=== PATIENT | male | born 1930 | race Caucasian/White ===

== ENCOUNTER 2016-05-18 13:02 | Day surgery (SDC) | payer MEDICARE, OTHER ==
[~2016-05-18] VITALS: Ht 185.4 cm; Wt 81.7 kg
[~2016-05-18 13:02] MED LIST: CHOL10008 PO; CYAN250014 PO; FOLI1TAB18 PO; GLUC100016 PO; LISI-567 PO; METH10TA PO; MULT-666 PO; Sodium Chloride LOK Flush 10 mL Syringe IVFLUSH SCH; fentaNYL-PF 50 mCg/mL 2 mL Inj IVPUSH PRN
[2016-05-18 13:37] VITALS: BP 138/82; PULSE 71; RESP 16; O2SAT 100
[2016-05-18] MEDS ORDERED: RANI150C4 PO (13:42)
[2016-05-18 15:38] VITALS: BP 119/64; PULSE 63; RESP 16; O2SAT 99
[2016-05-18 15:48] VITALS: BP 147/74; PULSE 60; RESP 16; O2SAT 100
--- NOTE | 2016-05-18 17:31 | ENDO ---
[address] [address] ENDOSCOPY PROCEDURE PATIENT: TOSHIA VILLEGAS : 1930 MR#: [id number] ADMIT: 05/18/2016 JOB ID: [id number] DATE: 05/18/2016 PRIMARY CARE PHYSICIAN: Keeley Cowan MD PROCEDURE: Esophagogastroduodenoscopy with esophageal biopsies. SURGEON: Anthony Corona MD EQUIPMENT: Upper endoscope #13. SEDATION: Versed 5 mg and fentanyl 100 mcg. INDICATIONS: The patient is an 86-year-old man who recently underwent upper GI study to evaluate for gastroesophageal reflux symptoms. There is noted to be mucosal irregularity seen suggestive of either reflux disease or possibly neoplasia. He was therefore referred to ma for upper endoscopy. PROCEDURAL TECHNIQUE: The patient was taken to the endoscopy suite and sedation achieved using the above-stated medications with the addition of oxygen administered via nasal cannula. A bite block was placed in the mouth. After adequate sedation was achieved, the endoscope was introduced through the mouth and advanced under direct visualization through the pharynx into the esophagus and down to the stomach and 2nd portion of duodenum. He was noted to have linear ulcerations in the esophagus extending approximately 7 cm from the GE junction proximal. He had a small sliding hernia. The GE junction was at 37 cm and the diaphragm at 43 cm. There is also some mild duodenitis. The ulcerations of the GE junction had a white eschar suggestive of a possible Kate infection. Biopsies were taken as well as brushings for cultures. The scope was then withdrawn. ENDOSCOPIC FINDINGS: 1. LA grade B esophagitis with possible candidiasis. 2. Mild duodenitis. RECOMMENDATIONS: A proton pump inhibitor prescription has been provided with the patient. He has been advised to start taking this. I will call him with the results of the pathology.
--- NOTE | 2016-05-23 12:04 | PATH ---
SURGICAL PATHOLOGY Attending Physician:Anthony Corona MD CASE STATUS: Signed Out PATIENT NAME: TOSHIA VILLEGAS PID: [id number] : 1930 DATE COLLECTED:05/18/2016 00:00 SPECIMEN: Esophagus, Biopsy CLINICAL HISTORY: 1). GASTRO-ESOPHAGEAL JUNCTION BIOPSY FINAL DIAGNOSIS: 1.GASTROESOPHAGEAL JUNCTION BIOPSY: SQUAMOUS MUCOSA AND SUBMUCOSA WITH SEVERE ACUTE AND CHRONIC INFLAMMATION, REACTIVE EPITHELIAL CHANGES, AND PROMINENT ULCERATION WITH GRANULATION TISSUE. IMMUNOHISTCHEMISTRY FOR CYTOMEGALOVIRUS NEGATIVE. PASD STAIN FOR FUNGI NEGATIVE NEGATIVE FOR VIRAL INCLUSIONS NO GASTRIC-TYPE EPITHELIUM IDENTIFIED. Negative for dysplasia and malignancy. Eosinophils are not identified. ICD10 CODE K20.9 GROSS DESCRIPTION: The specimen is received in one formalin filled container labeled with the patient's name, sublabeled "GEJ" and consists of 4 portions of tissue which aggregate to 0.3 x 0.3 x 0.3 CM. The specimen is entirely submitted in one cassette. 05/19/2016 [facility] MICRO DESCRIPTION: See diagnosis. ICD-9 CODES: CPT CODES: 1: 84859, 77853, 81210 Electronically Signed Out Orville Clinton MD [facility] Pathology [facility] [address], [place] [address] Technical component performed at [facility], [address] [place] [address] [address], [place], [address]
== END 2016-05-18 23:59 | disposition home or self-care (01) ==
LOC: END 13:02
PROVIDERS: ATTEND General Practice
DX: K20.9 Esophagitis, unspecified (principal); K44.9 Diaphragmatic hernia without obstruction or gangrene; K29.80 Duodenitis without bleeding; I10 Essential (primary) hypertension; M06.9 Rheumatoid arthritis, unspecified
CPT/HCPCS: 43239; 87220; G0500; J2250; J3010; J7030

== ENCOUNTER 2016-08-15 13:14 | Observation (INO) | payer MEDICARE, OTHER ==
[~2016-08-15] VITALS: Ht 185.4 cm; Wt 79.5 kg
[~2016-08-15 13:14] MED LIST changes: +RANI150C4 PO; -Sodium Chloride LOK Flush 10 mL Syringe IVFLUSH SCH; +TdaP Vaccine 0.5 mL Inj IM ONE; -fentaNYL-PF 50 mCg/mL 2 mL Inj IVPUSH PRN
--- NOTE | 2016-08-15 13:14 | ED.REPORT ---
HPI-Head Prob / Injury Date of Service August 15, 2016 ED Provider: Jg Bain MD 86 y/o male with hx of HTN and arthritis presents to the ED via EMS due to head injury from a fall before arriving at ED. As per EMS, the pt's saw the pt crawling into the house on all fours, covered in blood. She didn't know how long he had been outside. The pt reports he was using the washer meat but does not recall what caused the fall or anything prior to it. Associated sx include mild pain in the head radiating to his right shoulder, RUQ pain, right elbow pain, right leg and right hip pain and right knee soreness. The pt reports difficulty raising his right leg because of right hip pain. He denies right knee pain on movement, extremity numbness or weakness and SOB. He denies using any anticoagulants. Nursing Notes Stated Complaint: GROUND LEVEL FALL/HEAD TRAUMA Nursing Notes Reviewed: Yes ([employer], Daojia not reconciled) Allergies: Coded Allergies: Penicillins (Verified Allergy, Unknown, 05/18/16) Scheduled Cholecalciferol (Vitamin D3) (Vitamin D3) 1,000 Unit Tab.chew 1,000 UNIT PO DAILY Cyanocobalamin (Vitamin B-12) (Vitamin B12) 2,500 Mcg Tab.chew 2,500 MCG PO DAILY Folic Acid (Folic Acid) 1 Mg Tablet 1 MG PO DAILY Glucosamine Sulfate 2Kcl (Glucosamine) 1,000 Mg Tablet 1,000 MG PO DAILY Lisinopril (Lisinopril) 20 Mg Tablet 20 MG PO DAILY Methotrexate Sodium (Trexall) 10 Mg Tablet 20 MG PO once weekly Multivitamin (Once Daily) 1 Each Tablet 1 EACH PO DAILY Ranitidine (Ranitidine) 150 Mg Capsule 150 MG PO BID General Time Seen by Provider: 13:12 Chief Complaint Blunt head trauma Hx Obtained From: Patient, EMS Arrived By: Ambulance Onset Occurred: Just prior to arrival Symptom Duration: Since onset Progression Since Onset: Constant Caused by: Fall from Location: : Occipital region R: Parietal region R: Temporal region R Quality: Painful Severity: Current: Mild Severity: Maximum: Mild Recent Healthcare: No recent doctor visit Similar Sx Previous: No Risk-Head Prob / Injury )( IC Bleed Risk Strat RF Statements: No risk factors Past Medical History Past Medical History Notes: Medication list from next 10 includes: Doxycycline 20 mg 2 times a day Folic acid 1 mg daily Glucosamine Lisinopril 10 mg daily Methotrexate 2.5 mg daily Vitamin B12 Vitamin D3 Zyrtec 10 mg daily Past Medical History Rheumatoid arthritis, on Methotrexate History of acid reflux Hypertension History of macrocytic anemia History of incomplete emptying of bladder History of a tubular adenoma of the colon History of BPH Reports: Hypertension Past Surgical History TURP Family History Reviewed, not relevant Smoking History Former Smoker Social History Alcohol Use: 1-3 per day Drug Use: Denies drug use Occupation [employer] Status Independent Review of Systems GI: Reports: Abdominal pain Musculoskeletal: Reports: Extremity pain (Right leg), Joint pain (Right shoulder, right elbow and right hip) Neurologic: Reports: Headache, Denies: Numbness, Weakness Complete sys rev & neg: except as marked. Physical Exam Initial Vital Signs See trauma flow sheet Initial VS: Reviewed (See trauma flow sheet) General/Constitutional: Awake, Alert, Cooperative Head / Eyes: Atraumatic, Normocephalic, PERRL, EOMI ENT: Atraumatic, Airway patent Neck: Atraumatic, Supple, Full range of motion Neurologic: Oriented X3, Speech NL, No motor deficits, No sensory deficits Extended fast is negative. Cardiovascular: Heart rate NL, Regular rhythm, Heart sounds NL, No gallop, No murmurs Pitting edema on lower extremities (Pt reports this is typical). Good dorsal pedal pulse Upper Extremity / MS: Full range of motion, Neurologic intact, Vascular intact Right elbow skin tear Bruise on right shoulder and elbow. Skin tear on the left hand (old) Lower Extremity / Pelvis / MS: Full range of motion, No swelling, Neurologic intact, Vascular intact Bruise on left knee Bruise and abrasion on right knee. Skin: Warm, Dry Bruising and abrasion on right side of the face Interpretation & Diagnostics Procedure: CT CHEST, ABDOMEN AND PELVIS WITH CONTRAST Impression: 1. No posttraumatic injury in the chest, abdomen or pelvis. 2. Right apical 7mm ulnar nodule. The solid component of this nodule is too small for evaluation with PET/CT. Recommend followup chest CT in 3 motnhs. 3. Right adrenal nodule. Recommend a multiphasic abdominal CT or MRI 4. 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 This finding will aslo be further evaluated with CT or MRI. Dictated by: Andrew Samuel M.D. on 08/15/2016 at 14:36 Approved by: Andrew Samuel M.D. on 08/15/2016 at 1500 Lab Results Interpretation Result Diagram: 08/15/16 1653 Test 08/15/16 00:00 08/15/16 13:29 08/15/16 16:48 08/15/16 16:53 Neutrophils (%) (Auto) 81.2% (40-74) Lymphocytes (%) (Auto) 14.3% (14-46) Monocytes (%) (Auto) 3.6% (4-12) Eosinophils (%) (Auto) 0.5% (0-5) Basophils (%) (Auto) 0.1% (0-3) Total Creatine Kinase 77U/L (21-232) Troponin T < 0.010ug/L (0.0-0.011) Alcohols < 10mg/dL (0-10) Urine Color Yellow (YELLOW) Urine Appearance Clear (CLEAR,HAZY) Urine pH 6.5 (5.0-8.0) Urine Specific [place] 1.010 (1.003-1.035) Urine Protein Negativemg/dL (NEG,TRACE) Urine Glucose (UA) 100mg/dL (NEGATIVE) Urine Ketones Tracemg/dL (NEGATIVE) Urine Occult Blood Small (NEGATIVE) Urine Nitrite Negative (NEGATIVE) Urine Bilirubin Negative (NEGATIVE) Urine Urobilinogen Normalmg/dL (NORMAL) Urine Leukocyte Esterase Negative (NEGATIVE) Urine RBC 0-2/hpf (0-2) Urine WBC 0-5/hpf (0-5) Urine Epithelial Cells None/hpf (NONE-MOD) Urine Crystals None seen (NONE SEEN) Urine Bacteria None/hpf (NONE-FEW) Urine Hyaline Casts None/lpf (NONE) Urine Granular Casts None seen (NONE SEEN) Urine Waxy Casts None seen (NONE SEEN) Urine Red Blood Cell Casts None seen (NONE SEEN) Urine White Blood Cell Casts None seen (NONE SEEN) Urine Mucus None seen (None Seen) Urine Trichomonas None seen (NONE SEEN) Urine Yeast None (NONE SEEN) Urinalysis Comment None Urine Culture Reflexed Not indicated White Blood Count 14.5th/mm3 (3.8-10.1) Red Blood Count 3.32mil/mm3 (4.40-5.80) Hemoglobin 11.7g/dL (13.8-17.2) Hematocrit 34.9% (41.0-50.0) Mean Corpuscular Volume 105.1fL (81-100) Mean Corpuscular Hemoglobin 35.2pg (27.0-35.0) Mean Corpuscular Hemoglobin Concent 33.5% (32.0-37.0) Red Cell Distribution Width 13.0% (12.3-15.4) Platelet Count 254bil/L (150-400) Lab Results Interpretation: CBC mild anemia, however values are not markedly changed from 2014 CMP normal Troponin negative CK negative for findings a rhabdomyolysis Repeat hematocrit is higher than the original. No evidence of ongoing hemorrhage ECG Interpretation ECG Interpretation: Normal sinus rhythm at a rate of 78, right bundle branch block, left anterior fascicular block, probable LVH, unchanged compared to EKG dated 01/31/2014 Time: 13:19 Interpreted by: ED physician X-Ray Chest Interpretation Chest Xray Interpretation: IMPRESSION: 1. No acute cardiopulmonary process is suspected. 2. The right costophrenic angle is not included. 2. Cardiomegaly. Dictated by: Sherman Vinson M.D. on 08/15/2016 at 13:09 Approved by: Sherman Vinson M.D. on 08/15/2016 at 13:13 View: Portable, 1 view Interpretation / Wet Read by: Interpret - Radiologist X-Ray Interpretation Xray Interpretation: IMPRESSION: No acute fracture. No osseous lesion. If symptoms and/or clinical suspicion for pathology persist, further assessment with repeat, or advanced imaging (e.g., CT, MRI, or bone scan) may be helpful for further assessment. Dictated by: Miguel Angel Multani M.D. on 08/15/2016 at 14:37 Approved by: Miguel Angel Multani M.D. on 08/15/2016 at 14:38 X-Ray Ordered: Wrist right Interpretation / Wet Read by: Interpret - Radiologist Xray Interpretation: IMPRESSION: Advanced degenerative changes of the right shoulder without acute fracture. Dictated by: Sherman Vinson M.D. on 08/15/2016 at 13:15 Approved by: Sherman Vinson M.D. on 08/15/2016 at 13:15 X-Ray Ordered: Shoulder right Interpretation / Wet Read by: Interpret - Radiologist Xray Interpretation: IMPRESSION: 1. No displaced knee fracture. 2. Knee joint effusion probably is degenerative. 3. Moderate degenerative changes of the knee. Dictated by: Sherman Vinson M.D. on 08/15/2016 at 13:06 Approved by: Sherman Vinson M.D. on 08/15/2016 at 13:07 X-Ray Ordered: Knee right Interpretation / Wet Read by: Interpret - Radiologist Xray Interpretation: IMPRESSION: No acute fracture of the right femur. Dictated by: Sherman Vinson M.D. on 08/15/2016 at 13:05 Approved by: Sherman Vinson M.D. on 08/15/2016 at 13:06 X-Ray Ordered: Femur right Interpretation / Wet Read by: Interpret - Radiologist Xray Interpretation: IMPRESSION: Possible minimally displaced radial head/neck fracture. Dictated by: Miguel Angel Multani M.D. on 08/15/2016 at 13:59 Approved by: Miguel Angel Multani M.D. on 08/15/2016 at 14:03 X-Ray Ordered: Elbow right Interpretation / Wet Read by: Interpret - Radiologist CT Head Interpretation IMPRESSION: 1. No acute intracranial hemorrhage. 2. Proximal volume loss and chronic small vessel ischemic changes. 3. Mild ethmoid sinus disease and mastoid effusion on the left. Dictated by: Sherman Vinson M.D. on 08/15/2016 at 13:18 Approved by: Sherman Vinson M.D. on 08/15/2016 at 13:27 Study: Head CT no contrast Interpretation / Wet Read by: Interpret - Radiologist CT C-Spine Interpretation IMPRESSIONl 1. No acute pathology in the cervical spine. 2. Age-appropriate cervical spine degenerative change. 3. Right apical pulmonary nodule. Please refer to [facility]'s dedicated chest CT for further evaluation. Study type: CT no contrast Interpretation / Wet Read by: Interpret - Radiologist Re-Eval/Medical Decision Med Decision/Clinical Course This is an 86-year-old male who presented as a standby trauma with an unknown mechanism. The history is initially from the , the patient remembers going outside to do some pressure washing, but then called in on all fours into the house covered in blood, with clear, to the head, and can entirely amnestic to events-so 911 was called. It is unknown how the patient fell, while the patient fell, where the patient fell, if it is a simple ground-level fall with there was some sort of actual distance involved. We confused with a GCS of 14 for EMS, and is amnestic to events just prior to, during and after being found. However he remembers his birthday, date, yesterday's events and is otherwise acting appropriately. He complains of soreness including the head, right shoulder, and right hip/knee area, as well as right upper quadrant discomfort. His confirms he is not on any anticoagulants. he is awake, alert and answering questions appropriately, he can answer his birthday, previous events, but amnestic to events relating to today. He has no focal deficits. He has skin tears and abrasions to the right side of his head and face, but no lacerations requiring repair. Pupils are normal, extraocular motions are intact, there are no findings of oral or dental trauma evident. He does complain of some neck soreness of the c-collar remained in place until weird by CT imaging. His lungs were clear, heart tones are normal with no murmurs rubs or gallops, he has some mild right upper quadrant tenderness, but a bedside extended fast ultrasound was negative for appreciable findings. Bladder is mildly distended. He has bruising along the right shoulder, right elbow, right wrist-however he has intact range of motion preserved without overt signs of clinical fracture dislocation. He has intact hip and pelvic stability. He complains of some mild soreness of the right knee but I do not appreciate any effusion-there is evidence of contusion and mild abrasion to both knees bilaterally. He is neurovascularly intact. Patient had no hemodynamic instability. CT imaging of the brain, cervical spine negative. CT of the chest abdomen pelvis were also negative for acute traumatic pathology. Radiographs of the shoulder, right elbow, right wrist, right femur, right knee were generally negative, with a question of a radial head fracture of the right elbow raised-but on reevaluation the patient has no elbow pain, has full extension 280, full flexion, normal pronation and supination-with no clinical finds a fracture. Therefore splinting is not indicated at this time. EKG was obtained without acute dysrhythmia or ischemic event. Initial troponin is negative. There is no evidence of rhabdomyolysis on by CK values. At this point we do not know if there was an antecedent event. The patient still feels generally poor and not entirely normal. Given his age I discussed the option of observation hospitalization in he wrecked requests this, so the plan is observation to telemetry for continued management. Given a surgical injury has been identified the plan is admission to the medicine service for continued monitoring. LET is being applied to the abrasions, to alloud better cleaning and localized wound care. A Tdap update was provided At this time is unknown what precipitated the fall, if there was a medical antecedent-and telemetry monitoring for the possibility of a dysrhythmic event contributing and syncope is recommended. Patient does have mild anemia, but this appears to chronic per the records. The patient has a very sizable bladder on CT scan, he denies any clinical symptoms of difficulty urinating, or trying to get the patient to urinate so we can attempt a postvoid residual as catheterization might actually be warranted in this setting Indeed, while the patient has no urinary symptoms-, on imaging his bladder appears quite distended. So we had him urinate and obtain a bladder scan for postvoid residual which was greater than a liter, so Gates was placed. Source of Hx: Old records, EMS Re-Evaluation/Progress : Time of Eval: 15:50 Re-Evaluation/Progress Note: Pt rechecked. Discussed lab and imaging results. Pt reports he feels slightly better. He reports no pain in his right elbow. He has normal supination, full flexion adn full extension. Splinting is not required. Discussed the plan to admit the pt. He understands and agrees with the plan for admission. All questions addressed. Consultation #1: Call Returned at: 16:20 Note: Awaiting callback from admit hospitalist to identify which hospitalist will be admitting this patinet. 2nd page sent. Consultation #2: Referral / Consult Name: Sarah Ortega MD Consulted With: Hospitalist Call Returned at: 18:06 Interior Paneler: Will see patient, Agrees with eval, Agrees with plan, Accepts admit Differential Diagnosis: Positive: Abrasion, Blunt head trauma, Closed head injury, Negative: Basilar skull fracture, Cerebral contusion, Cervical spine injury, Epidural hematoma, Eye injury, Facial bone fracture, Gun shot wound head, Intracranial hemorrhage, Penetrating head injury, Scalp laceration, Skull fracture, Subdural hematoma Counseled Regarding: Diagnosis, Lab results, Need for admission Discharge & Departure Departure Notes r/o syncope. Primary Impression: Concussion Encounter type: initial encounter Loss of consciousness presence/duration: with LOC of unspecified duration Qualified Code: S06.0X9A - Concussion with loss of consciousness of unspecified duration, initial encounter Additional Impressions: Blunt head trauma Encounter type: initial encounter Qualified Code: S09.8XXA - Other specified injuries of head, initial encounter Multiple contusions Multiple abrasions Urinary retention Disposition: ADMITTED TO HOSPITAL All VS Reviewed: Yes Referrals: Keeley Cowan MD (PCP) Scribe Attestation Portions of this note were transcribed by Nancy Quinteros. I, , personally performed the history, physical exam and medical decision-making;I reviewed and confirmed the accuracy of the information in the transcribed note. Signed by Devan Elizalde. 08/15/16 [id number] copies to: Keeley Cowan MD, Matthew F MD August 15, 2016 13:14 Nancy Quinteros August 15, 2016 14:37
[2016-08-15] MEDS ORDERED: Lidocaine-Epi-Tetracaine Solution 3 mL Syringe TOPICAL ONE (13:25)
[2016-08-15] MEDS ORDERED: TdaP Vaccine 0.5 mL Inj IM ONE (13:25)
[2016-08-15] MEDS ORDERED: Ondansetron 2 mg/mL 2 mL Inj IVPUSH ONE (13:25)
[2016-08-15 14:01] LABS: Creatine Kinase 77 U/L (21-232)
[2016-08-15 14:03] LABS: TROPONIN T < 0.010 ug/L (0.0-0.011)
--- NOTE | 2016-08-15 14:05 | DRSVH ---
PROCEDURE: X-RAY RIGHT ELBOW, TWO VIEWS ([id number]) INDICATIONS: trauma TECHNIQUE: 3 views of the elbow were acquired. COMPARISON: None. FINDINGS: Examination is limited by difficulties with patient positioning. Bones: Linear lucency traverses the radial head and neck.. No suspicious bony lesions. Soft tissues: No elbow joint effusion. No suspicious soft tissue calcifications. IMPRESSION: Possible minimally displaced radial head/neck fracture. Dictated by: Miguel Angel Multani M.D. on 08/15/2016 at 13:59 Approved by: Miguel Angel Multani M.D. on 08/15/2016 at 14:03
--- NOTE | 2016-08-15 14:08 | DRSVH ---
PROCEDURE: X-RAY RIGHT FEMUR, TWO VIEWS ([id number]) INDICATIONS: trauma TECHNIQUE: 2 views of the femur were acquired. COMPARISON: [facility], CR, XR KNEE 3VW RT, 08/15/2016, 13:19. FINDINGS: Bones: No fractures or dislocations. No suspicious bony lesions. Degenerative changes of the knee and hip are noted. Soft tissues: No suspicious soft tissue calcifications or masses. IMPRESSION: No acute fracture of the right femur. Dictated by: Sherman Vinson M.D. on 08/15/2016 at 13:05 Approved by: Sherman Vinson M.D. on 08/15/2016 at 13:06
--- NOTE | 2016-08-15 14:09 | DRSVH ---
PROCEDURE: X-RAY RIGHT KNEE, THREE VIEWS ([id number]) INDICATIONS: trauma TECHNIQUE: 2 views of the knee were acquired. COMPARISON: None. FINDINGS: Bones: No displaced fracture or dislocation is identified. The bone mineralization is decreased. Th ere are moderate degenerative changes of the knee. Soft tissues: There is a small to moderate-sized joint effusion. No suspicious soft tissue calcifica tions. Prepatellar soft tissue thickening is noted. IMPRESSION: 1. No displaced knee fracture. 2. Knee joint effusion probably is degenerative. 3. Moderate degenerative changes of the knee. Dictated by: Sherman Vinson M.D. on 08/15/2016 at 13:06 Approved by: Sherman Vinson M.D. on 08/15/2016 at 13:07
--- NOTE | 2016-08-15 14:15 | DRSVH ---
PROCEDURE: X-RAY CHEST ONE VIEW, PORTABLE ([id number]) INDICATIONS: trauma TECHNIQUE: One view of the chest was acquired. COMPARISON: [facility], , CHEST 1VW (PORTABLE), 01/31/2014, 22:13. FINDINGS: Surgical changes and devices: None. Lungs and pleura: The right costophrenic angle is not included on this exam. Recommend the lungs ivory ear to be well aerated without focal consolidation, effusion, or pneumothorax. Mediastinum: Mediastinal contours appear normal. Heart size is enlarged. Bones and chest wall: No suspicious bony lesions. Multilevel degenerative changes of the spine are noted. Overlying soft tissues appear unremarkable. IMPRESSION: 1. No acute cardiopulmonary process is suspected. 2. The right costophrenic angle is not included. 2. Cardiomegaly. Dictated by: Sherman Vinson M.D. on 08/15/2016 at 13:09 Approved by: Sherman Vinson M.D. on 08/15/2016 at 13:13
--- NOTE | 2016-08-15 14:17 | DRSVH ---
PROCEDURE: X-RAY RIGHT SHOULDER, MINIMUM TWO VIEWS ([id number]) INDICATIONS: trauma TECHNIQUE: 2 views of the shoulder were acquired. COMPARISON: [facility], , SHOULDER MIN 2VW (RT), 02/28/2012, 11:29. FINDINGS: Bones: No fractures or dislocations. No suspicious bony lesions. Visualized ribs appear intact. S evere degenerative changes of the glenohumeral and acromio clavicular joints are present. There pseu doarticulation of the superior margin of the humeral head with the undersurface of the acromion, sugg esting a chronic rotator cuff tear. Soft tissues: No suspicious soft tissue calcifications. IMPRESSION: Advanced degenerative changes of the right shoulder without acute fracture. Dictated by: Sherman Vinson M.D. on 08/15/2016 at 13:15 Approved by: Sherman Vinson M.D. on 08/15/2016 at 13:15
--- NOTE | 2016-08-15 14:28 | DRSVH ---
PROCEDURE: CT BRAIN WITHOUT CONTRAST ([id number]) INDICATIONS: trauma TECHNIQUE: Noncontrast 4.5 mm thick angled axial sections acquired from the foramen magnum to the vertex, with c oronal reformats. COMPARISON: None. FINDINGS: Image quality: Diagnostic. Brain: There is no acute intra-axial or extra-axial hemorrhage. No extra-axial fluid collection is i dentified. There is no midline shift or mass effect. The orbits are grossly unremarkable. No large areas of diffusely decreased attenuation are evident within the brain to suggest diffuse cer ebral edema. Small scattered areas of low attenuation within the periventricular white matter of the supratentorial brain is noted within the occipital lobes. The ventricles and cortical sulci are mildly prominent. Bones: Calvarium and visualized facial bones are grossly intact. Mild mucosal thickening is noted i nvolving ethmoid air cells. There is opacification of the left mastoid air cells. Otherwise, the alexei ged paranasal sinuses and mastoid air cells are clear. IMPRESSION: 1. No acute intracranial hemorrhage. 2. Proximal volume loss and chronic small vessel ischemic changes. 3. Mild ethmoid sinus disease and mastoid effusion on the left. Dictated by: Sherman Vinson M.D. on 08/15/2016 at 13:18 Approved by: Sherman Vinson M.D. on 08/15/2016 at 13:27
--- NOTE | 2016-08-15 14:39 | DRSVH ---
PROCEDURE: X-RAY RIGHT WRIST COMPLETE, MINIMUM THREE VIEWS ([id number]) INDICATIONS: trauma TECHNIQUE: 4 views of the wrist were acquired. COMPARISON: None. FINDINGS: Bones: No fractures or dislocations. No suspicious bony lesions. Scaphoid view: Negative Soft tissues: No suspicious soft tissue calcifications. IMPRESSION: No acute fracture. No osseous lesion. If symptoms and/or clinical suspicion for patholog y persist, further assessment with repeat, or advanced imaging (e.g., CT, MRI, or bone scan) may be h elpful for further assessment. Dictated by: Miguel Angel Multani M.D. on 08/15/2016 at 14:37 Approved by: Miguel Angel Multani M.D. on 08/15/2016 at 14:38
[2016-08-15] MEDS: fentaNYL-PF 50 mCg/mL 2 mL Inj IVPUSH PRN ×2 (15:02→16:08)
[2016-08-15 15:05] LABS: Mean Corpuscular Hemoglobin 35.5 pg (27.0-35.0); Mean Corpuscular Volume 104.6 fL (81-100)
[2016-08-15 15:06] LABS: BASOPHILS % (AUTO) 0.1 % (0-3); EOSINOPHILS % (AUTO) 0.5 % (0-5); MONOCYTES % (AUTO) 3.6 % (4-12); NEUTROPHILS % (AUTO) 81.2 % (40-74); Platelet Count 218 bil/L (150-400)
[2016-08-15] MEDS ORDERED: Lidocaine 2% 6mL Topical Jelly TOPICAL ONE (16:50)
[2016-08-15 16:58] LABS: Mean Corpuscular Hemoglobin 35.2 pg (27.0-35.0); Mean Corpuscular Volume 105.1 fL (81-100)
[2016-08-15 17:33] LABS: APPEARANCE,URINE CLEAR (CLEAR,HAZY); COLOR,URINE YELLOW (YELLOW); OCCULT BLOOD,URINE SMALL (NEGATIVE); PH,URINE 6.5 (5.0-8.0); UROBILINOGEN,URINE NORMAL (NORMAL)
[2016-08-15] MEDS ORDERED: Ondansetron 2 mg/mL 2 mL Inj IVPUSH PRN (18:35)
[2016-08-15] MEDS ORDERED: Polyethylene Glycol (PEG) 17 Gm Powder PO PRN (18:35)
[2016-08-15] MEDS ORDERED: Alum-Mag Hydrox-Simeth 30 mL Suspension PO PRN (18:35)
[2016-08-15] MEDS ORDERED: HYDROcodone-APAP 7.5-325 mg Tablet PO PRN (18:50)
--- NOTE | 2016-08-15 19:28 | HP ---
[address] [address] HISTORY AND PHYSICAL PATIENT: TOSHIA VILLEGAS : 1930 MR#: [id number] ADMIT: 08/15/2016 JOB ID: [id number] PRIMARY CARE PROVIDER: Dr. Keeley Cowan. Patient is admitted from the ED, observational status, Green Team. CHIEF COMPLAINT: Fall with trauma and amnesia history to event. HISTORY OF PRESENT ILLNESS: This is an 86-year-old male who felt fine today. Had breakfast with his , was doing well and they went out to the deck to do pressure washing. About 2 or 3 hours later, looked out and saw him trying to crawl up the stairs of the deck with a bloodied right side of his face and bruising to the right side of his body. She called an ambulance and he was brought to the ED. The patient has no recollection of the event. He remembers feeling okay in the morning. Knows he was out pressure washing. He thinks he must have probably fallen down the stairs because he says there is no other way to have gotten down the stairs and be on the grass, but he was trying to crawl up. We have no idea how long he was down. He has otherwise been feeling well recently. There have been no other falls. He denies any recent dizziness, vertigo, lightheadedness. He has not had any chest pain, edema, shortness of breath, cough, diarrhea or other complaints. COMPLETE REVIEW OF SYSTEMS: Obtained, all pertinent positives in HPI as above, rest of review of systems are negative. PAST MEDICAL HISTORY: 1. Hypertension. 2. Rheumatoid arthritis. 3. GERD. 4. Macrocytic anemia. 5. BPH with a prior TURP. 6. History of tubular adenoma. MEDICINES: 1. Lisinopril 5 daily. 2. Folic acid 1 mg daily. 3. Pantoprazole 40 daily. 4. Methotrexate 2.5 once a week. 5. Vitamin B12. 6. Vitamin D 3, this was verified with the patient. ALLERGIES: PENICILLIN. SOCIAL HISTORY: Lives with his . Does not smoke. Drinks alcohol occasionally. FAMILY HISTORY: Dad had a stroke at 57 but lived to an older age. Mother at age 100. PHYSICAL EXAMINATION: Vitals are stable. Skin is warm and dry. The patient has abrasions with some skin sloughing, right side of his face. He has some bruising with a superficial abrasion to the right shoulder. A small little abrasion on the elbow. He has right hip that has some bruising and a little bit of an abrasion to the right knee laterally. I do not see any other lesions or abrasions on the other side. Eyes are PERRLA. EOM intact. Mouth shows adequate hydration. No neck pain. Cardiac is regular. No rubs. He has a 3/6 systolic murmur. His lungs are coarse but otherwise clear. Abdomen is soft, nonacute, benign. Extremities showed no significant edema. Cranial nerves 2-12 are intact. There are no gross motor or sensory defects noted. DIAGNOSES: 1. Traumatic fall present on admission, resolved. Differential would include just a mechanical fall, however, syncope, arrhythmias, orthostatic problems could also account for this. At this point in time, patient will be admitted and monitored on telemetry. Will get a PT evaluation. Will get some orthostatics on him in the morning. Will order an EEG, and we will monitor him carefully overnight. 2. Concussion, present on admission, active. The patient has had an amnesic event, suspect an underlying concussion at this time. CT negative of brain. 3. Urinary retention. In the ED, the patient was noted to have over 1000 mL in his bladder. He voided and he still had 1000 so Gates was placed. He may need to go home with that but will consider trying to remove it tomorrow. 4. Rheumatoid arthritis. Will monitor, continue methotrexate. 5. Hypertension. Will monitor, continue lisinopril and check orthostatics. 6. Macrocytosis. Check B12, folate levels. DISPOSITION: Primary care provider is Dr. Cowan, patient lives with his .
--- NOTE | 2016-08-15 20:23 | NUR ---
Case Management: Pt just arrived to room, pt still on [place], staff providing care. Will have to provide MOSES tomorrow. Beatriz Sharma RN
[2016-08-15 20:27] VITALS: BP 158/71; PULSE 82; RESP 20; O2SAT 100
[2016-08-15] MEDS ORDERED: LISI10TA PO (21:03)
[2016-08-15] MEDS ORDERED: CYAN1TAB42 PO (21:03)
[2016-08-15] MEDS ORDERED: PANT20TA2 PO (21:03)
[2016-08-15] MEDS ORDERED: METH2.5T PO (21:03)
[2016-08-15] MEDS ORDERED: PANT40TA3 PO (21:16)
[2016-08-15 21:29] VITALS: PULSE 87
[2016-08-15] MEDS: HYDROmorphone 1 mg/mL Inj IVPUSH PRN (22:32)
--- NOTE | 2016-08-15 23:31 | NUR ---
Admit: Pt arrived around 2044 to room 3020 from ED via stretcher, slide board used for transfer; no family at bedside. Pt AOx3, SL, thrasher in place. Tele placed, RA. Pt c/o generalized pain 5-6/10; PO medication administered, not effective. New order for IV pain medication, administered, effective. Home medications entered by admit RN. Bed alarm on for safety, pt pleasant and cooperative with care.
[2016-08-16] VITALS (8 sets, daily range): BP systolic 129–156; BP diastolic 67–74; PULSE 69–84; RESP 16–18; O2SAT 94–100
[2016-08-16] MEDS: HYDROmorphone 1 mg/mL Inj IVPUSH PRN ×3 (04:18→16:31)
--- NOTE | 2016-08-16 05:42 | NUR ---
Pain: Pt c/o pain x2 during NOC shift, medication administered; effective. Pt slept most of the night, pleasant and cooperative with care.
[2016-08-16] MEDS: Pantoprazole 20 mg ER24 Tablet PO SCH (08:30)
--- NOTE | 2016-08-16 11:36 | NUR ---
Evaluation completed. Please go to "Notes" then click on "Assessments and Notes" (bottom left corner of screen). Then select appropriate discipline tab on top of screen.
--- NOTE | 2016-08-16 12:37 | NUR ---
Case Management- MOSES explained and signed by patient. copy given to patient. Original placed in chart. Carolyne Barney RN/ UR
--- NOTE | 2016-08-16 14:03 | NUR ---
Social Work-initial assessment/readiness for discharge: Data:See initial assessment. Pt is a 86 y/o male who was admitted on 08/15/16 for concussion per H&P. Pt's insurance is [employer] and PCP is Keeley Cowan MD. EMR reviewed. pt's readmission score is 2. SW met with pt to discuss discharge planning, SW role explained. Pt is alert and oriented x3. Pt resides at home with his in [place] where he remains independent with ADLs. Pt does not use any DME and drives. Pt has no HH or SNF history. Pt has no moth exterminator care or VA benefits. SW discussed DPOA/ advanced directive, pt confirms he has completed this, SW encouraged pt to bring a copy into the hospital. PT saw pt and recommended home no needs. SW discussed HH services, but pt declining this at this time. pt's to provide transport home at discharge. SW provided phone number and plan on white board in room. No anticipated discharge needs. SW will continue to follow. Assessment:pt who is independent at baseline. Plan:Pt to discharge home when medically stable via POV. PT has cleared pt for home no needs. Pt declining HH services. No anticipated discharge needs. SW will continue to follow. LATIA Lopez Addendum: 08/16/16 at 1411 by SANJANA FERMIN Amended: Links added.
--- NOTE | 2016-08-16 14:07 | PCM.PNMED ---
Subjective Date of Service August 16, 2016 Subjective No new problems overnight. Considerable pain and stiffness, r shoulder back hip. Really no pain in the r elbow. Exam Vital Signs Vital Sign - Last Date Time Temp Pulse Resp B/P Pulse Ox O2 Delivery O2 Flow Rate FiO2 08/16/16 11:01 73 08/16/16 10:43 36.8 18 146/74 94 Room Air Intake and Output 08/15/16 08/15/16 08/16/16 Cumulative From/Thru 15:00 23:00 07:00 08/15/16 20:25 - 08/16/16 04:30 Intake Total 100 ml 100 ml Output Total 1950 ml 1950 ml Balance -1850 ml -1850 ml Intake Oral 100 ml 100 ml Output Urine Total 1950 ml 1950 ml Exam Eyes; javier, eom intact HENT; well hydrated, no lesions CV; regular, 3/6 systolic murmur Resp; clear GI; soft non tender Skin and abrasions, same as yesterday, the extensive abrasion and scraping right side of face is drying up and forming scabs right elbow, no pain with passive or active motion Lab and Diagnostics Result Diagram: 08/15/16 1653 08/15/16 1329 Assessment & Plan DIAGNOSES: 1. Traumatic fall, present on admission, resolved. -ortostatics normal, tele unrevieling, lab OK, cardiac markers negative, PT eval with standby assist -pending eeg results, echo results, B12, folate -Differential would include just a mechanical fall, however, syncope, arrhythmias, orthostatic problems could also account for this. 2. Concussion, present on admission, active. -The patient has had an amnesic fall event, suspect an underlying concussion at this time. -CT negative of brain. -supportive care 3. Possible hairline fracture right radial head/neck, poa, active -asymptomatic at this time, no active treatment needed 3. Urinary retention, poa, active -In the ED, the patient was noted to have over 1000 mL in his bladder. He voided and he still had 1000 so Thrasher was placed. -will d/c thrasher, hopefully patient will be able to void 4. Rheumatoid arthritis, poa, stable -Will monitor, continue methotrexate. 5. Hypertension, poa, stable -Will monitor, continue lisinopril and check orthostatics. 6. Macrocytosis, poa, stable Check B12, folate levels. 7. Abnormalities noted on CT needing out patient follow up, whole body 08/15/16; Pleas see CT report for recommended follow up -right apical 7 mm ulnar nodule -right adrenal nodule -severe left renal atrophy with likely hemorrhagic cyst. 8. Disposition; Patient live with who is pretty frail. I think patient would benefit being here overnight to recover a bit more before going home. PT can re-evaluate in am, and hopefully we will have the results of pending tests. It would be worth while to monitor one more night on tele looking for a cause of this fall. Sarah Ortega MD August 16, 2016 14:07
--- NOTE | 2016-08-16 19:43 | NUR ---
PAIN Pt reports increase pain today from yesterday in the R chest of 3-5/10. Given PRN 0.5 Dilaudid IV push. Pt reports pain is decreased to 2/10 and able to rest comfortably in bed. Pt on 1P assist for safety and bed alarm when in bed.
--- NOTE | 2016-08-16 21:01 | PROCED ---
[address] [address] EEG PATIENT: TOSHIA VILLEGAS : 1930 MR#: [id number] ADMIT: 08/15/2016 JOB ID: [id number] DATE OF SERVICE: 08/16/2016 HISTORY: The patient is an 86-year-old man with an episode of loss of consciousness. TECHNICAL DESCRIPTION: This digital EEG was recorded using 25 scalp and ear and two EKG electrodes. It was reviewed in bipolar and referential montages following reformatting in the 10-20 International Electrode Placement System. During the recording, the patient was noted to be awake, drowsy, and asleep. The background was composed of a 9 hertz 10 to 20 microvolt, symmetrical and reactive posterior dominant rhythm that attenuated with eye opening. The rest of the background was composed of low voltage faster frequencies. There were no focal, lateralized, or epileptiform discharges noted. There were no seizures seen. Hyperventilation was not performed. Photic stimulation from 1-30 hertz did not elicit any photic driving response. Sleep was characterized by the attenuation of the alpha rhythm and the appearance of symmetrical vertex waves, heralding stage 1 of sleep. This is followed by the development of symmetrical sleep spindles, heralding stage 2 of sleep. The EKG rhythm strip revealed a heart rate of 60 to 80 beats per minute with no apparent arrhythmias. IMPRESSION: This EEG performed in the awake, drowsy, and asleep states is within normal limits. Clinical correlation is advised. QUINND
[2016-08-17] VITALS (7 sets, daily range): BP systolic 101–138; BP diastolic 64–76; PULSE 70–99; RESP 16–18; O2SAT 96–98
[2016-08-17 08:14] LABS: Vitamin B12 >1999 pg/mL (211-946)
[2016-08-17] MEDS: Pantoprazole 20 mg ER24 Tablet PO SCH (09:00)
--- NOTE | 2016-08-17 11:59 | DRSVH ---
PROCEDURE: CT CERVICAL SPINE WITHOUT CONTRAST ([id number]) INDICATIONS: trauma TECHNIQUE: Noncontrast 3 mm thick sections acquired from the skull base to the T4 level. Sagittal and coronal r eformats were then constructed. For radiation dose reduction, the following was used: automated exp osure control, adjustment of mA and/or kV according to patient size. COMPARISON: None. FINDINGS: Image quality: Excellent. Bones: Partial left mastoid air cell effusion with no CT evidence of associated displaced fracture. N o acute fractures or dislocations. Normal cervical vertebral body alignment. Intervertebral disc heig ht loss and osteophyte formation consistent with age-appropriate degenerative changes greatest at C3- 4 and C5-7. Old well-corticated avulsion fracture from the posterior C7 spinous process. Soft tissues: Prevertebral soft tissues are normal in thickness. No paravertebral hematomas. No ap ical pneumothoraces. 4 mm right apical pulmonary nodule a (se 11 im 73]. IMPRESSION: 1. No acute pathology in the cervical spine. 2. Age-appropriate cervical spine degenerative change. 3. Right apical pulmonary nodule. Please refer to today's dedicated chest CT for further evaluation. Dictated by: Andrew Samuel M.D. on 08/15/2016 at 14:23 Approved by: Andrew Samuel M.D. on 08/15/2016 at 14:28
--- NOTE | 2016-08-17 12:00 | DRSVH ---
PROCEDURE: CT CHEST, ABDOMEN AND PELVIS WITH CONTRAST ([id number]) INDICATIONS: trauma TECHNIQUE: After the administration of intravenous contrast, 5 mm thick sections acquired from the lung apices t o the symphysis. 5 mm thick coronal and sagittal reformats were acquired. Additional 7 mm thick cor onal maximum intensity projection (MIP) reformats acquired through the lungs. Optional 10-minute del ayed imaging may be performed from the kidneys to the bladder. For radiation dose reduction, the fol lowing was used: automated exposure control, adjustment of mA and/or kV according to patient size. COMPARISON: None. FINDINGS: Image quality: Excellent. CHEST: Lungs: There is a 7 mm right apical pulmonary nodule (se 13 im 13). Otherwise the lungs are clear. N o pulmonary contusions or lacerations. No acute airspace opacities. No pneumothorax or hemothorax. Central and peripheral airways appear patent and normal in caliber. Mediastinum: No mediastinal hematomas. Heart size is normal. No pericardial effusion. Thoracic ao rta and pulmonary arteries demonstrate normal size and enhancement. No mediastinal or hilar adenopat hy. Esophagus is normal in caliber. Small hiatal hernia. Chest wall: Subcutaneous emphysema in the left shoulder.. ABDOMEN: Solid organs: The liver, gallbladder, pancreas, spleen, left adrenal gland are normal. There is a 3.8 x 2.6 cm right adrenal gland nodule. Marked left renal atrophy with a 1.9 cm inferior left renal nod ule. Several right renal cysts. 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 The bladder is distended with small aicha dder diverticula. Peritoneum and bowel: No free fluid or air. Unenhanced bowel loops demonstrate normal wall thicknes s and caliber. Normal appendix. Nodes and vessels: No retroperitoneal or mesenteric adenopathy. Aorta and inferior vena cava are no rmal in size and enhancement. Miscellaneous: No ventral hernias. PELVIS: Genitourinary: Bladder wall thickness is normal. Miscellaneous: No inguinal hernias or adenopathy. Bones: Pelvic ring and hip joints appear intact. No vertebral compression fractures. IMPRESSION: 1. No posttraumatic injury in the chest, abdomen or pelvis. 2. Right apical 7 mm ulnar nodule. The solid component of this nodule is too small for evaluation wit h PET/CT. Recommend followup chest CT in 3 months. 3. Right adrenal nodule. Recommend a multiphasic abdominal CT or MRI. 4. 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 This finding will also be further evaluate d with CT or MRI. Dictated by: Andrew Samuel M.D. on 08/15/2016 at 14:36 Approved by: Andrew Samuel M.D. on 08/15/2016 at 15:00
--- NOTE | 2016-08-17 12:39 | DRSVH ---
[facility] [address] [place] [address] Echocardiogram Report Name: TOSHIA VILLEGAS DStudy Date: 08/17/2016 Height: 73 in Hospital Exam Location: [facility] Weight: 175 lb Gender: Male BSA: 2.0 m2 : 1930 Age: 86 yrs BP: 101/65 mmHg Reason For Study: Murmur Ordering Physician: HOSPITALIST [facility] Performed By: Emily Quiñonez Referring Physician: Dr Keeley Cowan Interpretation Summary There is mild concentric left ventricular hypertrophy. The ejection fraction is estimated to be 60-65%. There is mild aortic valve sclerosis. There is no hemodynamically significant valvular aortic stenosis. There is trace tricuspid regurgitation. Procedure: A two-dimensional transthoracic echocardiogram with color flow and Doppler was performed. There is no prior echocardiogram noted for this patient. The study quality was technically adequate. The patient was in normal sinus rhythm during the exam. Left Ventricle: There is mild concentric left ventricular hypertrophy. The left ventricle is normal in size. The ejection fraction is estimated to be 60 -65%. Left ventricular wall motion is normal. The E/A ratio is reversed, suggesting impaired early relaxation of the left ventricle or a reduced preload state. Right Ventricle: The right ventricle is normal in size and function. The right ventricular systolic function is normal. Atria: The left atrial size is normal. Right atrial size is normal. The interatrial septum is intact with no evidence for an atrial septal defect. There is no Doppler evidence for an interatrial shunt. Mitral Valve: The mitral valve is normal in structure and function. There is no mitral regurgitation noted. Aortic Valve: The aortic valve is trileaflet. Leaflet mobility is mildly reduced. Minimal to no movement of the right aortic cusp. There is mild aortic valve sclerosis. There is no hemodynamically significant valvular aortic stenosis. No aortic regurgitation is present. Tricuspid Valve: The tricuspid valve is normal in structure and function. There is trace tricuspid regurgitation. Pulmonic Valve: The pulmonic valve is normal in structure and function. There is trace pulmonic regurgitation. Great Vessels: The aortic root is normal size. The dimensions of the ascending aorta are normal. The ascending aorta is normal in size. The pulmonary artery is normal size. The IVC is of normal diameter and collapses greater than 50% with a sniff. This suggests a low right atrial pressure of 3 mm Hg. Pericardium/ Pleura There is no pericardial effusion. There is no pleural effusion. MMode/2D Measurements & Calculations LVIDd: 4.0 cm RA long axis LVOT diam LVIDs: 2.3 cm LA A2 area: 15.4 cm FS: 42.4 % LA A4 area: 14.0 cm RA area AoV Opening EPSS: 0.68 cm LA length (vol): 4.4 cm IVSd: 1.2 cm LA vol: 41.5 ml : 18.0 cm Ao root diam LVPWd: 1.3 cm LA vol index RA vol : 52.4 ml asc Aorta RA Diam: 3.1 cm IVC diam: 1.2 cm : 25.8 mm2 LV schneider. diameter/BSA LV sys. diameter/BSA RVD1 (basal) RVD2 (mid) (cm/m^2): 2.0 (cm/m^2): 1.1 : 3.3 cm TAPSE: 1.8 cm Doppler Measurements & Calculations Ao V2 max MV E max christiano MV E/A: 0.72 TR max christiano : 208.5 cm/sec : 55.7 cm/sec Med Peak E' Christiano : 213.8 cm/sec Ao max PG MV A max christiano TR max PG : 17.4 mmHg : 76.9 cm/sec E/E' med: 8.5 : 18.3 mmHg Ao mean PG MV P1/2t: 100.1 msec Lat Peak E' Christiano PA V2 max : 10.3 mmHg : 91.0 cm/sec LVOT Max Christiano E/E' lat: 7.8 PA mean PG : 122.3 cm/sec E/e' average: 8.2 TAMMY(I,D): 2.2 cm Pulm A Revs Dur PA Accel Time sev ratio : 0.14 sec MV A dur: 0.12 sec MV dec time MV P1/2t max christiano Ao V2 mean LV V1 max PG : 0.34 sec : 153.2 cm/sec Ao V2 VTI: 39.8 cm LV V1 VTI MVA(P1/2t): 2.2 cm2 : 24.5 cm TAMMY(V,D): 2.1 cm2 PA V2 mean TAMMY indexed to BSA Pulm A Revs Dur - MV A : 70.6 cm/sec (cm^2/m^2): 1.1 Dur: 0.01 msec Electronically signed by: Jurgen Ng on Reading Physician:08/17/2016 12:38 PM
--- NOTE | 2016-08-17 13:23 | PCM.DIMED ---
Discharge Instructions Date of Service August 17, 2016 Dates of Hospitalization August 15, 2016 at 18:06 Discharge Diagnosis Discharge Diagnosis DIAGNOSES: 1. Traumatic fall, present on admission, resolved. 2. Concussion, present on admission, improving. 3. Possible hairline fracture right radial head/neck, poa, asymptomatic 3. Urinary retention, poa, active 4. Rheumatoid arthritis, poa, stable 5. Hypertension, poa, stable . 6. Macrocytosis, poa, stable 7. Abnormalities noted on CT needing out patient follow up, whole body 08/15/16; Pleas see CT report for recommended follow up Patient Instructions Follow-up plan follow up with Dr. Cowan about one week, limited activity until seen as we discussed. Follow-up with PCP in: 1 week Sarah Ortega MD August 17, 2016 13:23
--- NOTE | 2016-08-17 13:32 | PCM.DC.MED ---
Discharge Summary Date of Service August 17, 2016 Dates of Hospitalization Date of Hospital Admission August 15, 2016 at 18:06 Date of Discharge: August 17, 2016 Providers: Admitting Physician: Sarah Ortega MD Primary Care Physician: Keeley Cowan MD Attending Physician: Sarah Ortega MD Diagnosis at Time of Discharge Diagnosis at Time of Discharge Diagnosis at time of discharge 1. Traumatic fall, present on admission, resolved. 2. Concussion, present on admission, improving. 3. Possible hairline fracture right radial head/neck, poa, asymptomatic 3. Urinary retention, poa, active 4. Rheumatoid arthritis, poa, stable 5. Hypertension, poa, stable . 6. Macrocytosis, poa, stable 7. Abnormalities noted on CT needing out patient follow up, whole body 08/15/16; Pleas see CT report for recommended follow up Procedures XRay, CTs & MRIs PROCEDURE: CT CHEST, ABDOMEN AND PELVIS WITH CONTRAST ([id number]) INDICATIONS: trauma TECHNIQUE: After the administration of intravenous contrast, 5 mm thick sections acquired from the lung apices to the symphysis. 5 mm thick coronal and sagittal reformats were acquired. Additional 7 mm thick coronal maximum intensity projection (MIP) reformats acquired through the lungs. Optional 10-minute delayed imaging may be performed from the kidneys to the bladder. For radiation dose reduction, the following was used: automated exposure control, adjustment of mA and/or kV according to patient size. COMPARISON: None. FINDINGS: Image quality: Excellent. CHEST: Lungs: There is a 7 mm right apical pulmonary nodule (se 13 im 13). Otherwise the lungs are clear. No pulmonary contusions or lacerations. No acute airspace opacities. No pneumothorax or hemothorax. Central and peripheral airways appear patent and normal in caliber. Mediastinum: No mediastinal hematomas. Heart size is normal. No pericardial effusion. Thoracic aorta and pulmonary arteries demonstrate normal size and enhancement. No mediastinal or hilar adenopathy. Esophagus is normal in caliber. Small hiatal hernia. Chest wall: Subcutaneous emphysema in the left shoulder.. ABDOMEN: Solid organs: The liver, gallbladder, pancreas, spleen, left adrenal gland are normal. There is a 3.8 x 2.6 cm right adrenal gland nodule. Marked left renal atrophy with a 1.9 cm inferior left renal nodule. Several right renal cysts. 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 The bladder is distended with small bladder diverticula. Peritoneum and bowel: No free fluid or air. Unenhanced bowel loops demonstrate normal wall thickness and caliber. Normal appendix. Nodes and vessels: No retroperitoneal or mesenteric adenopathy. Aorta and inferior vena cava are normal in size and enhancement. Miscellaneous: No ventral hernias. PELVIS: Genitourinary: Bladder wall thickness is normal. Miscellaneous: No inguinal hernias or adenopathy. Bones: Pelvic ring and hip joints appear intact. No vertebral compression fractures. IMPRESSION: 1. No posttraumatic injury in the chest, abdomen or pelvis. 2. Right apical 7 mm ulnar nodule. The solid component of this nodule is too small for evaluation with PET/CT. Recommend followup chest CT in 3 months. 3. Right adrenal nodule. Recommend a multiphasic abdominal CT or MRI. 4. 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 This finding will also be further evaluated with CT or MRI. Dictated by: Andrew Samuel M.D. on 08/15/2016 at 14:36 PROCEDURE: X-RAY RIGHT ELBOW, TWO VIEWS ([id number]) INDICATIONS: trauma TECHNIQUE: 3 views of the elbow were acquired. COMPARISON: None. FINDINGS: Examination is limited by difficulties with patient positioning. Bones: Linear lucency traverses the radial head and neck.. No suspicious bony lesions. Soft tissues: No elbow joint effusion. No suspicious soft tissue calcifications. IMPRESSION: Possible minimally displaced radial head/neck fracture. Dictated by: Miguel Angel Multani M.D. on 08/15/2016 at 13:59 PROCEDURE: CT CERVICAL SPINE WITHOUT CONTRAST ([id number]) INDICATIONS: trauma TECHNIQUE: Noncontrast 3 mm thick sections acquired from the skull base to the T4 level. Sagittal and coronal reformats were then constructed. For radiation dose reduction, the following was used: automated exposure control, adjustment of mA and/or kV according to patient size. COMPARISON: None. FINDINGS: Image quality: Excellent. Bones: Partial left mastoid air cell effusion with no CT evidence of associated displaced fracture. No acute fractures or dislocations. Normal cervical vertebral body alignment. Intervertebral disc height loss and osteophyte formation consistent with age-appropriate degenerative changes greatest at C3-4 and C5-7. Old well-corticated avulsion fracture from the posterior C7 spinous process. Soft tissues: Prevertebral soft tissues are normal in thickness. No paravertebral hematomas. No apical pneumothoraces. 4 mm right apical pulmonary nodule a (se 11 im 73]. IMPRESSION: 1. No acute pathology in the cervical spine. 2. Age-appropriate cervical spine degenerative change. 3. Right apical pulmonary nodule. Please refer to today's dedicated chest CT for further evaluation. Dictated by: Andrew Samuel M.D. on 08/15/2016 at 14:23 Other Diagnostics TECHNICAL DESCRIPTION: This digital EEG was recorded using 25 scalp and ear and two EKG electrodes. It was reviewed in bipolar and referential montages following reformatting in the 10-20 [employer] Electrode [employer]acement System. During the recording, the patient was noted to be awake, drowsy, and asleep. The background was composed of a 9 hertz 10 to 20 microvolt, symmetrical and reactive posterior dominant rhythm that attenuated with eye opening. The rest of the background was composed of low voltage faster frequencies. There were no focal, lateralized, or epileptiform discharges noted. There were no seizures seen. Hyperventilation was not performed. Photic stimulation from 1-30 hertz did not elicit any photic driving response. Sleep was characterized by the attenuation of the alpha rhythm and the appearance of symmetrical vertex waves, heralding stage 1 of sleep. This is followed by the development of symmetrical sleep spindles, heralding stage 2 of sleep. The EKG rhythm strip revealed a heart rate of 60 to 80 beats per minute with no apparent arrhythmias. IMPRESSION: This EEG performed in the awake, drowsy, and asleep states is within normal limits. Clinical correlation is advised. Hever Augustin MD 08/16/162004 Brief History HISTORY OF PRESENT ILLNESS: This is an 86-year-old male who felt fine today. Had breakfast with his , was doing well and they went out to the deck to do pressure washing. About 2 or 3 hours later, looked out and saw him trying to crawl up the stairs of the deck with a bloodied right side of his face and bruising to the right side of his body. She called an ambulance and he was brought to the ED. The patient has no recollection of the event. He remembers feeling okay in the morning. Knows he was out pressure washing. He thinks he must have probably fallen down the stairs because he says there is no other way to have gotten down the stairs and be on the grass, but he was trying to crawl up. We have no idea how long he was down. He has otherwise been feeling well recently. There have been no other falls. He denies any recent dizziness, vertigo, lightheadedness. He has not had any chest pain, edema, shortness of breath, cough, diarrhea or other complaints. Hospital Course DIAGNOSES: 1. Traumatic fall, Syncope,present on admission, resolved. -ortostatics normal, tele unrevieling, lab OK, cardiac markers negative, PT eval with standby assist -eeg negative, echo OK, B12, folate also OK -Differential would include just a mechanical fall, however, syncope, arrhythmias, orthostatic problems could also account for this. 2. Concussion, present on admission, active. -The patient has had an amnesic fall event, suspect an underlying concussion at this time. -CT negative of brain. -supportive care 3. Possible hairline fracture right radial head/neck, poa, active -asymptomatic at this time, no active treatment needed 3. Urinary retention, poa, active -In the ED, the patient was noted to have over 1000 mL in his bladder. He voided and he still had 1000 so Thrasher was placed. -at time of discharge we are still trying to get patient to void, if he can't then will replace thrasher start flowmax and discharge patient with the thrasher 4. Rheumatoid arthritis, poa, stable -Will monitor, continue methotrexate. 5. Hypertension, poa, stable -Will monitor, continue lisinopril and check orthostatics. 6. Macrocytosis, poa, stable Check B12, folate levels. 7. Abnormalities noted on CT needing out patient follow up, whole body 08/15/16; Pleas see CT report for recommended follow up -right apical 7 mm ulnar nodule (I think this is an apical pulmonary nodule) -right adrenal nodule -severe left renal atrophy with likely hemorrhagic cyst. 8. Disposition; Patient live with who is pretty frail. I think patient would benefit being here overnight to recover a bit more before going home. PT can re-evaluate in am, and hopefully we will have the results of pending tests. It would be worth while to monitor one more night on tele looking for a cause of this fall. 08/17/2016; patient and son comfortable going home, close follow up with PCP. Exam Vital Signs (Last) Date Time Temp Pulse Resp B/P Pulse Ox O2 Delivery O2 Flow Rate FiO2 08/17/16 12:59 37.1 73 18 135/76 Room Air 08/17/16 09:28 98 Exam Eyes; javier, eom intact HENT; well hydrated, no lesions CV; regular, 3/6 systolic murmur Resp; clear GI; soft non tender Skin and abrasions, same as yesterday, the extensive abrasion and scraping right side of face is drying up and forming scabs right elbow, no pain with passive or active motion Test 08/15/16 00:00 08/15/16 13:29 08/15/16 16:48 08/15/16 16:53 Neutrophils (%) (Auto) 81.2% (40-74) Lymphocytes (%) (Auto) 14.3% (14-46) Monocytes (%) (Auto) 3.6% (4-12) Eosinophils (%) (Auto) 0.5% (0-5) Basophils (%) (Auto) 0.1% (0-3) Sodium Level 138mEq/L (134-144) Potassium Level 4.1mEq/L (3.5-5.2) Chloride Level 101mEq/L (97-108) Carbon Dioxide Level 18mmol/L (18-29) Blood Urea Nitrogen 39mg/dL (8-27) Creatinine 1.35mg/dL (0.76-1.27) Estimat Glomerular Filtration Rate 54mL/min (>59) Glucose Level 140mg/dL (60-99) Calcium Level 9.3mg/dL (8.5-10.1) Total Bilirubin 0.5mg/dL (0.0-1.2) Aspartate Amino Transf (AST/SGOT) 63U/L (0-50) Alanine Aminotransferase (ALT/SGPT) 40U/L (0-44) Alkaline Phosphatase 135U/L (25-160) Total Creatine Kinase 77U/L (21-232) Troponin T < 0.010ug/L (0.0-0.011) Total Protein 6.1g/dL (6.4-8.4) Albumin 3.7g/dL (3.4-5.0) Thyroid Stimulating Hormone (TSH) 1.880uIU/mL (0.450-4.500) Free Thyroxine 1.65ng/dL (0.82-1.77) Alcohols < 10mg/dL (0-10) Urine Color Yellow (YELLOW) Urine Appearance Clear (CLEAR,HAZY) Urine pH 6.5 (5.0-8.0) Urine Specific [place] 1.010 (1.003-1.035) Urine Protein Negativemg/dL (NEG,TRACE) Urine Glucose (UA) 100mg/dL (NEGATIVE) Urine Ketones Tracemg/dL (NEGATIVE) Urine Occult Blood Small (NEGATIVE) Urine Nitrite Negative (NEGATIVE) Urine Bilirubin Negative (NEGATIVE) Urine Urobilinogen Normalmg/dL (NORMAL) Urine Leukocyte Esterase Negative (NEGATIVE) Urine RBC 0-2/hpf (0-2) Urine WBC 0-5/hpf (0-5) Urine Epithelial Cells None/hpf (NONE-MOD) Urine Crystals None seen (NONE SEEN) Urine Bacteria None/hpf (NONE-FEW) Urine Hyaline Casts None/lpf (NONE) Urine Granular Casts None seen (NONE SEEN) Urine Waxy Casts None seen (NONE SEEN) Urine Red Blood Cell Casts None seen (NONE SEEN) Urine White Blood Cell Casts None seen (NONE SEEN) Urine Mucus None seen (None Seen) Urine Trichomonas None seen (NONE SEEN) Urine Yeast None (NONE SEEN) Urinalysis Comment None Urine Culture Reflexed Not indicated White Blood Count 14.5th/mm3 (3.8-10.1) Red Blood Count 3.32mil/mm3 (4.40-5.80) Hemoglobin 11.7g/dL (13.8-17.2) Hematocrit 34.9% (41.0-50.0) Mean Corpuscular Volume 105.1fL (81-100) Mean Corpuscular Hemoglobin 35.2pg (27.0-35.0) Mean Corpuscular Hemoglobin Concent 33.5% (32.0-37.0) Red Cell Distribution Width 13.0% (12.3-15.4) Platelet Count 254bil/L (150-400) Test 08/16/16 14:48 Vitamin B12 Level >1999pg/mL (211-946) Folate > 19.9ng/mL (>3.0) Discharge Medications Discharge Medications Cholecalciferol (Vitamin D3) (Vitamin D3) 1,000 Unit Tab.chew 1,000 UNIT PO DAILY (Reported) Cyanocobalamin/Folic Acid (Vitamin R80-Xhxwp Acid Tablet) 1 Each Tablet 1 EACH PO DAILY (Reported) Folic Acid (Folic Acid) 1 Mg Tablet 1 MG PO DAILY (Reported) Glucosamine Sulfate 2Kcl (Glucosamine) 1,000 Mg Tablet 1,000 MG PO DAILY ( Reported) Lisinopril (Lisinopril) 10 Mg Tablet 5 MG PO DAILY (Reported) Methotrexate Sodium (Methotrexate) 2.5 Mg Tablet 10 MG PO BID on ( Reported) Multivitamin (Once Daily) 1 Each Tablet 1 EACH PO DAILY (Reported) Pantoprazole DR (Pantoprazole DR) 40 Mg Tablet.dr 40 MG PO DAILY (Reported) Followup Plan Follow-up plan follow up with Dr. Cowan about one week, limited activity until seen as we discussed. Follow-up with PCP in: 1 week copies to: Keeley Cowan MD, D Geoffrey MD August 17, 2016 13:32
--- NOTE | 2016-08-17 14:36 | NUR ---
Social Work-Discharge: Data:Pt is on day 2 of hospitalization for concussion per H&P. EMR reviewed. Pt is medicall ycleared for discharge, is up and independent in room. PT has evaluated pt and is recommending home, no needs. Pt's to provide transport home at discharge. No anticipated discharge needs. Assessment:pt who is independent at baseline. Plan:Pt to discharge home via POV. PT has cleared pt for home no needs. Pt declining services. No anticipated discharge needs. LATIA yAala
--- NOTE | 2016-08-17 14:39 | NUR ---
DC from PT; ambulate w/nsg Pt has met all PT goals and is discharged from further PT at this time; released to ambulate w/nsg w/FWW 2-3x/day as pt tolerates.
--- NOTE | 2016-08-17 14:47 | NUR ---
Wound note Wound orders received. Patient seen at bedside. 86 yo male fell at home incurring multiple lacerations of his face and right elbow. Right sided facial lacerations have been treated with skin glue from the appearance, recommended bacitracin application twice a day. Right elbow skin teat is 2 cm x 3 cm x 0.2 cm, skin flap removed with scissors and redressed wound with adhesive foam dressing. Wounds are superficial and uninfected, no follow up needed at wound care.
--- NOTE | 2016-08-17 16:27 | NUR ---
Urinary Retention: Patient has not been able to urinate since having his Gates catheter discontinued at 0915. He has been drinking ice water and ice tea. And he has been up ambulating with nursing staff. He has sat on the toilet to void. But as of yet patient has not urinated and does not feel the urge to void (with his bladder scan showing 731ml of urine in his bladder.) Per MD , Gates cath was placed with leg bag attached for D/C home. Patient was also given a regular size Gates catheter bag to use at night while he is sleeping. Over 600ml of urine was drained from patients bladder when the Gates cath was inserted.
--- NOTE | 2016-08-17 17:07 | NUR ---
Gates Catheter Patient was retaining 750 mL of urine according to bladder scanner. Placed 16F Gates catheter per hospital policy using sterile technique. Drained 525 mL of clear and yellow urine. Educated patient on leg bag care, how to switch to a bedside bag, monitor urine characteristics, and proper hand and equipment hygiene. Patient did a return demonstration of what was taught. Addendum: 08/17/16 at 1713 by ROBERT GOODSON Amended: Links added.
--- NOTE | 2016-08-17 17:31 | NUR ---
Discharge Nursing Note: Patient was discharged to home at 1745. His IV was discontinued intact . Patients New leg bag is draining to gravity for D/C home. Patient was instructed about how to empty the new Gates and how to disconnect and reconnect the large Gates bag for night time use. Patients Telemetry was removed. All of patient discharge information was reviewed with him and his questions were answered to his satisfaction. Patient was brought to the hospital lobby in a wheelchair by nursing staff member and he was driven home by his son.
== END 2016-08-17 17:38 | disposition home or self-care (01) ==
LOC: SED 13:14 → MPC 18:06
PROVIDERS: ADMIT Hospitalist; ATTEND Hospitalist
DX: S06.0X9A Concussion with loss of consciousness of unspecified duration, initial encounter (principal); S00.81XA Abrasion of other part of head, initial encounter; S00.93XA Contusion of unspecified part of head, initial encounter; S40.011A Contusion of right shoulder, initial encounter; S50.01XA Contusion of right elbow, initial encounter; S60.211A Contusion of right wrist, initial encounter; W29.2XXA Contact with other powered household machinery, initial encounter; Y93.H9 Activity, other involving exterior property and land maintenance, building and construction; Y92.018 Other place in single-family (private) house as the place of occurrence of the external cause; R33.9 Retention of urine, unspecified; M06.9 Rheumatoid arthritis, unspecified; I10 Essential (primary) hypertension; D75.89 Other specified diseases of blood and blood-forming organs; K21.9 Gastro-esophageal reflux disease without esophagitis; D53.9 Nutritional anemia, unspecified; N40.0 Benign prostatic hyperplasia without lower urinary tract symptoms; Z87.891 Personal history of nicotine dependence; Z23 Encounter for immunization
CPT/HCPCS: 36415; 51702; 51798; 70450; 71010; 71260; 72125; 73030; 73070; 73110; 73551; 73562; 74177; 80053; 81000; 82550; 82607; 82746; 84439; 84443; 84484; 85025; 85027; 90471; 90715; 93005; 95816; 96374; 96375; 96376; 97116; 97161; 97602; 99285; C8929; G0378; G0480; J1170; J2405; J3010; Q9967